=== PATIENT | male | born 1970 | race Caucasian/White ===

== ENCOUNTER → 2022-04-02 14:58 | Outpatient (BNVA) | payer OTHER, SELFPAY | PROVIDERS: PCP Internal Medicine; Visit Provider Internal Medicine Cardiovascular Disease | DX: I42.9 Cardiomyopathy, unspecified (principal); Z95.2 Presence of prosthetic heart valve | CPT/HCPCS: 93005 ==

== ENCOUNTER → 2022-05-08 14:50 | Outpatient (REF) | payer OTHER, SELFPAY ==
--- NOTE | 2022-05-08 14:52 | CA_ITS ---
Transthoracic Echocardiogram Patient (Last, First, Middle): ERNESTO NAVARRO, Gender: Male Date of : 1970 Age: 51 Procedure Date: 05/08/2022 Procedure Type: Transthoracic Echocardiogram Location: OP Height: 165.1 cm Weight: 77.11 kg BSA: 1.85 m2 Heart Rate: bpm BP: 130 / 75 mmHg Venue Manager: TO Referring MD: Diego Vargas MD Symptoms: Z95.2 - Presence of prosthetic heart valve Study Quality: Fair/Contrast Conclusions: - The left ventricular systolic function is mildly decreased. The calculated ejection fraction is 47% by biplane method. - There is mildly decreased right ventricular systolic function. - The left atrium is mildly dilated. - A mechanical prosthetic aortic valve is present. The prosthetic aortic valve appears to be functioning normally. Findings Procedure Information Contrast agent, definity, is being given per protocol without apparent complications. Left Ventricle Normal left ventricular cavity size. The left ventricular systolic function is mildly decreased. The calculated ejection fraction is 47% by biplane method. There is mild global hypokinesis. Diastolic function is normal for age. There is mild septal asymmetric hypertrophy. Right Ventricle Mildly increased right ventricular cavity size. There is mildly decreased right ventricular systolic function. Atria The left atrium is mildly dilated. The right atrium is normal in size. Aortic Valve A mechanical prosthetic aortic valve is present. The prosthetic aortic valve appears to be functioning normally. The mean gradient is 10 mmHg. There is no aortic valve regurgitation. Acceleration time 95ms. Mitral Valve The mitral valve appears normal. There is trace mitral valve regurgitation. There is no mitral valve stenosis. Pulmonic Valve The pulmonic valve is likely normal. There is trace pulmonic valve regurgitation. Tricuspid Valve Normal tricuspid valve structure. There is mild tricuspid valve regurgitation. There is no evidence of pulmonary hypertension. Great Vessels The asc aorta is normal in size. Venous The inferior vena cava is normal in size and collapses greater than 50% with inspiration. Pericardium/Pleural There is no evidence of pericardial effusion. Prior Study Comparison Changes noted compared to prior study dated: 09/04/2019. LVEF higher. Previously described wall motion abnormalities not clearly visualized. Measurements 2D Linear Measurements IVSd: 1.06 0.6-0.9/0.6-1.0 cm LVIDd: 5.92 3.9-5.3/4.2-5.9 cm LVIDd Index: 3.20 2.4-3.2/2.2-3.1 cm/m2 LVIDs: 4.33 2.0-3.6 cm LVPWd: 0.93 0.7-1.1 cm LA Diam: 3.70 2.7-3.8/3.0-4.0 cm LAIDs Index: 2.00 1.5-2.3 cm/m2 LV Mass: 299.13 67-162/88-224 g LV Mass Index: 161.69 43-95/49-115 g/m2 LVOT Diam: 2.10 3.0+(-)1.3 cm 2D Systolic Function EF 4C: 38.50 >55% EF 2C: 54.80 >55% EF BiP: 47.10 >55% Mitral Valve MV VTI: 0.40 MV Pk Yanick: 1.03 MV Mn Yanick: 0.71 MV Pk Grad: 4.00 MV Mn Grad: 2.00 MV Pk E: 1.04 MV PK A: 0.91 MV Decel Time: 304.00 E/A: 1.10 E'Lateral: 11.30 E'Medial: 5.55 E/E' Med: 18.70 E/E' Lat: 9.20 PHT: 89.00 MVA PHT: 2.47 MVA Continuity: 1.50 Decel [place]: 3.42 Aortic Valve AoV Pk Yanick: 2.13 AoV Mn Yanick: 1.47 AoV VTI: 0.48 AoV Pk Grad: 18.00 Aov Mn Grad: 10.00 SHARON Cont.VTI: 1.27 LVOT LVOT Pk Yanick: 0.70 LVOT Mn Yanick: 0.46 LVOT VTI: 0.18 LVOT Pk Grad: 2.00 LVOT Mn Grad: 1.00 LVOT Diam: 2.10 LVOT Area: 3.46 Diastolic Function MV Pk E: 1.04 MV Pk A: 0.91 E/A: 1.10 E'Medial: 5.55 E/E' Med: 18.70 E' Laterial: 11.30 E/E' Lat: 9.20 Right Ventricle TAPSE (mm): 16.10 TVS' Yanick: 8.92 Tricuspid Valve TR Pk Yanick: 2.59 TR Pk Grad: 27.00 RA Press: 3.00 RVSP: 30.00 Great Vessels Aorta Ao Asc: 2.90 2.1-3.4 cm Updated in Other Vendor System with Status of Final John Johns MD electronically signed on 05/08/2022 5:21:35 PM with status of Final
== END ==
LOC: HO.CARD 14:50
PROVIDERS: Visit Provider Internal Medicine Cardiovascular Disease
DX: I42.9 Cardiomyopathy, unspecified (principal); Z95.2 Presence of prosthetic heart valve
CPT/HCPCS: 93306; Q9957

== ENCOUNTER → 2022-05-21 15:01 | Outpatient (BNVA) | payer OTHER, SELFPAY | PROVIDERS: PCP Internal Medicine; Visit Provider Internal Medicine Cardiovascular Disease | DX: Z13.89 Encounter for screening for other disorder (principal) ==

== ENCOUNTER → 2023-05-16 13:43 | Outpatient (REF) | payer OTHER, SELFPAY ==
--- NOTE | 2023-05-16 13:47 | CA_ITS ---
Transthoracic Echocardiogram Patient (Last, First, Middle): ERNESTO NAVARRO, Gender: Male Date of : 1970 Age: 52 Procedure Date: 05/16/2023 Procedure Type: Transthoracic Echocardiogram Location: OP Height: 165.1 cm Weight: 79.38 kg BSA: 1.87 m2 Heart Rate: bpm BP: 118 / 70 mmHg Stars Specialist: TO Referring MD: Diego Vargas MD Manufacturing Planner: Diego Vargas MD Symptoms: I42.9 - Cardiomyopathy, unspecified Study Quality: Fair/Contrast ECG Rhythm: Sinus with extra systoles Conclusions: - 1. Low normal LV ejection fraction of 50-55% with impaired relaxation filling pattern 2. Mildly to moderately reduced RV systolic function 3. Normally functioning mechanical aortic prosthesis with mean gradient of 13 mmHg 4. Normal RV systolic pressure 5. No gross pericardial effusion Findings Procedure Information Contrast agent, definity, is being given per protocol without apparent complications. Left Ventricle Normal left ventricular cavity size. There is normal left ventricular wall thickness. The left ventricular systolic function is low normal. The visually estimated ejection fraction is between 50-55%. Spectral Doppler is indicative of an impaired relaxation filling pattern. E/E prime ratio is between 8 and 15 consistent with indeterminate filling pressures. There is mild septal asymmetric hypertrophy. Right Ventricle Normal right ventricular cavity size. There is mild to moderately decreased right ventricular systolic function. Atria The left atrium is likely dilated. There is no evidence of interatrial shunt. The right atrium is normal in size. Aortic Valve A mechanical prosthetic aortic valve is present. The prosthetic aortic valve appears to be functioning normally. The mean gradient is 13 mmHg. There is no aortic valve regurgitation. Mitral Valve There is mild anterior and posterior mitral leaflet thickening. There is mild mitral annular calcification. There is trace mitral valve regurgitation. There is no mitral valve stenosis. Pulmonic Valve The pulmonic valve was not well visualized. Tricuspid Valve Normal tricuspid valve structure. There is mild tricuspid valve regurgitation. The right ventricular systolic pressure is normal. The right ventricular systolic pressure is 29 mmHg. Normal right atrial pressure. There is no evidence of pulmonary hypertension. Great Vessels All visible segments of the aorta are normal in size. The pulmonary artery was not well visualized. Venous The inferior vena cava is normal in size and collapses greater than 50% with inspiration. Pericardium/Pleural There is no evidence of pericardial effusion. Prior Study Comparison Changes noted compared to prior study dated: 05/08/2022. LV systolic function has marginally improved Measurements 2D Linear Measurements IVSd: 1.51 0.6-0.9/0.6-1.0 cm LVIDd: 3.88 3.9-5.3/4.2-5.9 cm LVIDd Index: 2.07 2.4-3.2/2.2-3.1 cm/m2 LVIDs: 2.48 2.0-3.6 cm LVPWd: 1.07 0.7-1.1 cm LA Diam: 3.30 2.7-3.8/3.0-4.0 cm LAIDs Index: 1.76 1.5-2.3 cm/m2 LV Mass: 219.62 67-162/88-224 g LV Mass Index: 117.44 43-95/49-115 g/m2 LVOT Diam: 2.30 3.0+(-)1.3 cm 2D Systolic Function EF 4C: 55.50 >55% EF 2C: 51.30 >55% EF BiP: 52.70 >55% Mitral Valve MV VTI: 0.36 MV Pk Yanick: 1.08 MV Mn Yanick: 0.72 MV Pk Grad: 5.00 MV Mn Grad: 2.00 MV Pk E: 0.95 MV PK A: 1.02 MV Decel Time: 269.00 E/A: 0.90 E'Lateral: 10.70 E'Medial: 6.09 E/E' Med: 15.60 E/E' Lat: 8.90 PHT: 79.00 MVA PHT: 2.78 MVA Continuity: 2.41 Decel [place]: 3.52 Aortic Valve AoV Pk Yanick: 2.50 AoV Mn Yanick: 1.66 AoV VTI: 0.53 AoV Pk Grad: 25.00 Aov Mn Grad: 13.00 SHARON Cont.VTI: 1.64 LVOT LVOT Pk Yanick: 0.93 LVOT Mn Yanick: 0.61 LVOT VTI: 0.21 LVOT Pk Grad: 3.00 LVOT Mn Grad: 2.00 LVOT Diam: 2.30 LVOT Area: 4.15 Diastolic Function MV Pk E: 0.95 MV Pk A: 1.02 E/A: 0.90 E'Medial: 6.09 E/E' Med: 15.60 E' Laterial: 10.70 E/E' Lat: 8.90 Right Ventricle TAPSE (mm): 13.70 TVS' Yanick: 9.75 Tricuspid Valve TR Pk Yanick: 2.29 TR Pk Grad: 21.00 RA Press: 8.00 RVSP: 29.00 Great Vessels Aorta Sinus of Valsalva: 3.49 2.0-3.5 cm Ao Asc: 3.10 2.1-3.4 cm Updated in Other Vendor System with Status of Final Diego Vargas MD electronically signed on 05/17/2023 11:56:26 AM with status of Final
== END ==
LOC: HO.CARD 13:43
PROVIDERS: PCP Internal Medicine; Visit Provider Internal Medicine Cardiovascular Disease
DX: I42.9 Cardiomyopathy, unspecified (principal); Z95.2 Presence of prosthetic heart valve
CPT/HCPCS: 93306; Q9957

== ENCOUNTER → 2023-05-16 13:47 | Outpatient (BNV) | payer OTHER, SELFPAY | PROVIDERS: PCP Internal Medicine; Visit Provider Internal Medicine Cardiovascular Disease | DX: I34.81 Nonrheumatic mitral (valve) annulus calcification (principal); I36.1 Nonrheumatic tricuspid (valve) insufficiency; I42.9 Cardiomyopathy, unspecified | CPT/HCPCS: 93306 ==

== ENCOUNTER 2023-08-15 13:12 | Outpatient (AMB) | payer OTHER, SELFPAY ==
[2023-08-15 13:14] VITALS: BP 120/72; PULSE 73; BMI 29.4
--- NOTE | 2023-08-15 13:14 | A.OFFVIS_ITS ---
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 Today he reports he has been feeling very well with no concerning cardiac symptoms. His primary concern is of discomfort in his right knee. He tells me he has a torn meniscus and will need to have surgery. He denies chest discomfort at rest or with activity. No shortness of breath, palpitations, lightheadedness, presyncope, syncope, falls. He goes to the gym routinely and does the elliptical and lifts weights. Taking his Coumadin and [place] [facility] [place] He has had no bleeding issues. He tells me his levels have been stable. Takes antibiotics 1 hour prior to dental work. 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 [facility] Surgical History (Updated 08/15/23 @ 15:32 by Ruth Bains, MICA-C) Status post ascending aortic aneurysm repair S/P AVR (aortic valve replacement) and aortoplasty Family History Father No problems noted. Mother Cancer Social History Patient Tobacco Use Status: Former Tobacco user Review of Systems Const All systems reviewed & are unremarkable except as noted in HPI and below ENT Denies dizziness Card Denies chest pain, Denies chest pain at rest, Denies chest pain with activity, Denies rapid heart rate, Denies pedal edema, Denies edema, Denies leg edema, Denies lightheadedness, Denies palpitations, Denies dyspnea, Denies dyspnea on exertion and Denies orthopnea Resp Denies cough, Denies dyspnea and Denies dyspnea on exertion GI Denies hematochezia and Denies change in stool character Musc Denies abnormal gait, Denies limited range of motion, Denies muscle cramps, Denies muscle weakness, Denies numbness, Denies radiating pain into limb, Denies stiffness and Denies tingling Neuro Denies abnormal gait, Denies dizziness, Denies numbness and Denies tingling Endo Denies palpitations Physical Exam Vital Signs: Last Vital Signs Pulse 73 08/15/23 13:14 BP 120/72 08/15/23 13:14 BMI result Body Mass Index 29.4 Const General: cooperative, healthy appearing, comfortable and no acute distress Orientation/consciousness: patient oriented x3 Neck Neck: Yes normal visual inspection and Yes no JVD Resp Effort & Inspection: normal respiratory effort Auscultation: clear to auscultation bilaterally, no rales, no rhonchi and no wheezes Cardio Jugular venous distension: no JVD Rate: regular rate Rhythm: regular rhythm Heart sounds: S1 normal heart sound present, S2 normal heart sound present, Clicking heart sound present (crisp aortic valve click), no murmurs and no rubs Neuro General: patient oriented x3 Extrem General: Yes normal to inspection, No no pedal edema and No calf tenderness Psych Appearance: grossly normal Mental Status: mental status grossly normal Speech and movement: Normal speech and movement present Office Procedures EKG Details: Today, read by me, normal sinus rhythm, left axis deviation, rate 73, QTc 425ms [id number], Complete Assessment & Plan Assessment & Plan (1) H/O aortic valve replacement: Comment: 01/2024 Code(s): Z95.2 - Presence of prosthetic heart valve Category: Surgical Plan: History of severe aortic stenosis status post mechanical aortic valve, remotely. Patient states he was 34 at the time. He has been on Coumadin for anticoagulation. INR goal 2-3. He follows with [facility] antico[facility]. INRs have been stable according to him. No bleeding issues reported. No need for concomitant aspirin use. SBE prophylaxis per ACC/AHA guidelines. He tells me he does take his antibiotic 1 hour prior to dental work. Last echocardiogram done 05/16/2023 shows EF 50-55%, [id number] reduced RV systolic function, normally function mechanical prosthetic aortic valve with mean gradient 13 mmHg. Echocardiogram done 1 year ago showed EF 47% and mean gradient 10 mmHg. Granite valve click noted on examination. Continue Coumadin. Will plan for repeat echo in 1 year. Cardiology follow-up 1 year, sooner if needed. (2) Anticoagulated: Code(s): Z79.01 - custodial (current) use of anticoagulants Category: Medical Plan: As above (3) Status post ascending aortic aneurysm repair: Comment: Development of thoracic aortic aneurysm suspected to be secondary to bicuspid aortic valve status post repair September 2014 with the a number 28 Hemashield graft Code(s): Z98.890 - Other specified postprocedural states; Z86.79 - Personal history of other diseases of the circulatory system Category: Surgical Plan: 09/2014. Recent echo showing ascending aorta 2.9 cm (4) Cardiomyopathy: Code(s): I42.9 - Cardiomyopathy, unspecified Category: Medical Plan: History of cardiomyopathy, improved to low normal. Recent EF 50-55%. No heart failure on examination. He does not require diuretic therapy. Continue low- dose metoprolol. (5) Preop cardiovascular exam: Code(s): Z01.810 - Encounter for preprocedural cardiovascular examination Category: Medical Plan: Preop for orthopedic surgery, right knee arthroscopic, partial medial meniscectomy. Recent echo shows normal EF. He has a known mechanical aortic v alve. He has no known history of CAD. His activity tolerance is greater than 4 Mets. He can proceed with surgery with low to intermediate cardiac risk. He is on Coumadin for anticoagulation. Coumadin can be held 5 days prior to surgery. He needs a Lovenox bridge. This was ordered for him and full instructions given. Following surgery he is to resume Lovenox and Coumadin. Continue Lovenox until INR reaches 2. He will contact the Coumadin Clinic and arrange for his INR checks. Continue low-dose metoprolol. Call/consult Cardiology if needed. Plan Time spent on chart review, documentation, interview and assessment Medications: New enoxaparin (Lovenox) (0.8 mL) 80 mg subcutaneously q 12 hours as directed before and after surgery; Lovenox bridge for coumadin hold - written instructions given to patient 14 ea 1RF Coding Level of Care Code Est Pt Level 4 (95883) Diagnoses H/O aortic valve replacement Z95.2 Anticoagulated Z79.01 Status post ascending aortic aneurysm repair Z98.890; Z86.79 Cardiomyopathy I42.9 Preop cardiovascular exam Z01.810 CPT Codes EKG - CPT: 16094-[id number], Complete ([id number]) Time Spent (min) 30
== END 2023-08-15 13:43 | disposition home or self-care (01) ==
PROVIDERS: PCP Internal Medicine; Visit Provider Nurse Practitioner Family
DX: Z95.2 Presence of prosthetic heart valve (principal); Z79.01 Long term (current) use of anticoagulants; Z98.890 Other specified postprocedural states; Z86.79 Personal history of other diseases of the circulatory system; I42.9 Cardiomyopathy, unspecified; Z01.810 Encounter for preprocedural cardiovascular examination
CPT/HCPCS: 93010; 99214

== ENCOUNTER → 2023-08-15 13:12 | Outpatient (BNVA) | payer OTHER, SELFPAY | PROVIDERS: PCP Internal Medicine; Visit Provider Nurse Practitioner Family | DX: Z01.810 Encounter for preprocedural cardiovascular examination (principal); I42.9 Cardiomyopathy, unspecified; Z95.2 Presence of prosthetic heart valve; Z86.79 Personal history of other diseases of the circulatory system; Z79.01 Long term (current) use of anticoagulants | CPT/HCPCS: 93005 ==

== ENCOUNTER 2024-09-01 13:36 | Outpatient (AMB) | payer OTHER, SELFPAY ==
[2024-09-01 13:37] VITALS: BP 110/70; PULSE 70; BMI 31.5
--- NOTE | 2024-09-01 13:37 | A.OFFVIS_ITS ---
Vital Signs 09/01/24 13:37 Height 5 ft 5 in Weight 189 lb 9.561 oz BMI 31.5 BP 110/70 Blood Pressure Location Lt brachial Position Sitting Pulse 70 Intake Visit Reasons: 1 yr follow up Intake Note: 1 year follow-up with ekg c/o fatigue Pharmaceutical Process Engineer Required: No Allergies No Known Allergies Allergy (Verified 08/15/23 13:16) Medication List - Last Reconciled 09/01/24 by Diego Vargas MD metoprolol succinate ER (Toprol XL) 25 mg PO DAILY 90 days simvastatin 20 mg PO BEDTIME warfarin 10 - 15 mg PO DAILY HPI Comments Details: Manfred comes for follow-up. He has not been exercising much due to right knee issues. Has gained some weight. However with his usual activity denies any exertional chest pain or shortness of breath. Denies any prolonged palpitation irregular heartbeat. No orthopnea, PND, leg edema. No neurologic events or bleeding issues. INRs has been running a little low, he sometimes forgets to take warfarin. Takes his antibiotics regularly. [facility] Surgical History Status post ascending aortic aneurysm repair S/P AVR (aortic valve replacement) and aortoplasty Family History Father No problems noted. Mother Cancer Social History Patient Tobacco Use Status: Former Tobacco user Review of Systems Const Denies chills, Denies fatigue, Denies fever(s), Denies frequent falls, Denies weakness, Denies weight gain and Denies weight loss ENT Denies dizziness Card Denies chest pain, Denies leg edema, Denies lightheadedness, Denies palpitations, Denies dyspnea, Denies dyspnea on exertion, Denies orthopnea and Denies other (loss of consciousness) Resp Denies cough, Denies dyspnea and Denies dyspnea on exertion GI Denies hematochezia and Denies change in stool character Musc Denies abnormal gait, Denies muscle weakness, Denies numbness, Denies radiating pain into limb and Denies tingling Neuro Denies abnormal gait, Denies dizziness, Denies frequent falls, Denies numbness, Denies tingling and Denies weakness Endo Denies fatigue and Denies palpitations Physical Exam Vital Signs: Last Vital Signs Pulse 70 09/01/24 13:37 BP 110/70 09/01/24 13:37 BMI result Body Mass Index 31.5 Const General: cooperative, comfortable, no acute distress, well developed, alert and awake Nutritional Appearance: well nourished and overweight Orientation/consciousness: patient oriented x3 Limitations: no limitations Neck Neck: Yes trachea midline, Yes supple and Yes no JVD Resp Effort & Inspection: normal respiratory effort Auscultation: clear to auscultation bilaterally Cardio Jugular venous distension: no JVD Palpation: normal PMI Rate: regular rate Rhythm: regular rhythm Heart sounds: S1 normal heart sound present, Clicking heart sound present (Wilkinson closing click of [place] Roberto aortic valve), no gallops, no murmurs and no rubs GI Auscultation: normal bowel sounds Skin General skin exam: no rashes or lesions noted Neuro General: patient oriented x3 and no focal motor deficits Extrem General: Yes no clubbing, cyanosis or edema Psych Appearance: grossly normal Office Procedures EKG Details: EKG shows normal sinus rhythm with normal EKG [id number], Complete Assessment & Plan Assessment & Plan (1) Status post ascending aortic aneurysm repair: Comment: Development of thoracic aortic aneurysm suspected to be secondary to bicuspid aortic valve status post repair September 2014 with the a number 28 Hemashield graft Code(s): Z98.890 - Other specified postprocedural states; Z86.79 - Personal history of other diseases of the circulatory system Category: Surgical Plan: Status post mechanical aortic valve replacement with 27 mm valve Saint Roberto, clinically working well. At the same time he also had repair of his ascending aorta. Clinically both seem to be doing well by last echocardiogram. Repeat echocardiogram near future. Continue aggressive blood pressure control. Continue warfarin therapy being followed by Coumadin Clinic. Maintain target INR between 2 and 3. SBE prophylaxis as per ACC/aha guidelines. (2) Cardiomyopathy: Code(s): I42.9 - Cardiomyopathy, unspecified Category: Medical Plan: Prior history of cardiomyopathy which has normalized. Continue metoprolol therapy for neurohormonal modulation. Avoidance of cardiotoxic agent was discussed. Continue to follow up with echocardiogram. Encouraged to maintain activity level as tolerated. Signs and symptoms of heart failure were discussed. Will follow up in the clinic in 1 year's time, sooner p.r.n.. Thank you for allowing me to partake in his care Orders: Orders CA echo transthoracic complete Today Z95.2 - Presence of prosthetic heart valve Coding Level of Care Code Est Pt Level 4 (69678) Complex EM visit Add On G2211 Diagnoses Status post ascending aortic aneurysm repair Z98.890; Z86.79 Cardiomyopathy I42.9 CPT Codes EKG - CPT: 38414-[id number], Complete ([id number])
== END 2024-09-01 13:59 | disposition home or self-care (01) ==
LOC: HO.HCS 13:36
PROVIDERS: PCP Internal Medicine; Visit Provider Internal Medicine Cardiovascular Disease
DX: Z98.890 Other specified postprocedural states (principal); Z86.79 Personal history of other diseases of the circulatory system; I42.9 Cardiomyopathy, unspecified
CPT/HCPCS: 93010; 99214

== ENCOUNTER → 2024-09-01 13:36 | Outpatient (BNVA) | payer OTHER, SELFPAY | PROVIDERS: PCP Internal Medicine; Visit Provider Internal Medicine Cardiovascular Disease | DX: I42.9 Cardiomyopathy, unspecified (principal); Z95.2 Presence of prosthetic heart valve; Z98.890 Other specified postprocedural states; Z86.79 Personal history of other diseases of the circulatory system | CPT/HCPCS: 93005 ==

== ENCOUNTER → 2024-10-09 07:42 | Outpatient (REF) | payer OTHER, SELFPAY ==
--- NOTE | 2024-10-09 07:49 | CA_ITS ---
Transthoracic Echocardiogram Patient (Last, First, Middle): Manfred Scott, Gender: Male Date of : 1970 Age: 54 Procedure Date: 10/09/2024 Procedure Type: Transthoracic Echocardiogram Location: OP Height: 165. cm Weight: 81.65 kg BSA: 1.89 m2 Heart Rate: 78 bpm BP: 162 / 90 mmHg Cotton Weigher Operator: JOANA Referring MD: Diego Vargas MD Symptoms: Z95.2 - Presence of prosthetic heart valve Study Quality: Fair ECG Rhythm: Sinus Conclusions: - The left ventricular systolic function is low normal. The calculated ejection fraction is 53% by biplane method. - A mechanical prosthetic aortic valve is present. The prosthetic aortic valve appears to be functioning normally. Findings Left Ventricle Normal left ventricular cavity size. There is normal left ventricular wall thickness. The left ventricular systolic function is low normal. The calculated ejection fraction is 53% by biplane method. Diastolic function is normal for age. Right Ventricle Mildly increased right ventricular cavity size. There is normal right ventricular systolic function. Atria Both atria are normal in size. Aortic Valve A mechanical prosthetic aortic valve is present. The prosthetic aortic valve appears to be functioning normally. The mean gradient is 12 mmHg. There is no aortic valve regurgitation. Mitral Valve The mitral valve appears normal. There is mild mitral annular calcification. There is trace mitral valve regurgitation. There is no mitral valve stenosis. Pulmonic Valve The pulmonic valve is likely normal. Tricuspid Valve There is trace tricuspid valve regurgitation. There is no evidence of pulmonary hypertension. Great Vessels The asc aorta and aortic arch are normal in size. Venous The inferior vena cava is normal in size and collapses greater than 50% with inspiration. Pericardium/Pleural There is no evidence of pericardial effusion. Prior Study Comparison No significant change compared to prior study dated: 05/16/2023. Measurements 2D Linear Measurements IVSd: 0.99 0.6-0.9/0.6-1.0 cm LVIDd: 4.68 3.9-5.3/4.2-5.9 cm LVIDd Index: 2.48 2.4-3.2/2.2-3.1 cm/m2 LVIDs: 3.38 2.0-3.6 cm LVPWd: 1.09 0.7-1.1 cm LA Diam: 4.30 2.7-3.8/3.0-4.0 cm LAIDs Index: 2.28 1.5-2.3 cm/m2 LV Mass: 214.53 67-162/88-224 g LV Mass Index: 113.51 43-95/49-115 g/m2 LVOT Diam: 2.20 3.0+(-)1.3 cm 2D Systolic Function EF 4C: 53.00 >55% EF 2C: 53.20 >55% EF BiP: 53.10 >55% Mitral Valve MV VTI: 0.27 MV Pk Yanick: 1.27 MV Mn Yanick: 0.75 MV Pk Grad: 6.00 MV Mn Grad: 3.00 MV Pk E: 0.89 MV PK A: 1.18 MV Decel Time: 178.00 E/A: 0.80 E'Lateral: 8.81 E'Medial: 6.96 E/E' Med: 12.80 E/E' Lat: 10.10 PHT: 52.00 MVA PHT: 4.23 MVA Continuity: 2.57 Decel [place]: 5.01 Aortic Valve AoV Pk Yanick: 2.14 AoV Mn Yanick: 1.63 AoV VTI: 0.40 AoV Pk Grad: 18.00 Aov Mn Grad: 12.00 SHARON Cont.VTI: 1.73 LVOT LVOT Pk [place]ick: 0.91 LVOT Mn Yanick: 0.68 LVOT VTI: 0.18 LVOT Pk Grad: 3.00 LVOT Mn Grad: 2.00 LVOT Diam: 2.20 LVOT Area: 3.80 Diastolic Function MV Pk E: 0.89 MV Pk A: 1.18 E/A: 0.80 E'Medial: 6.96 E/E' Med: 12.80 E' Laterial: 8.81 E/E' Lat: 10.10 Right Ventricle TAPSE (mm): 19.30 TVS' [place]: 10.00 Tricuspid Valve TR Pk Yanick: 2.17 TR Pk Grad: 19.00 RA Press: 3.00 RVSP: 22.00 Great Vessels Aorta Sinus of Valsalva: 3.80 2.0-3.5 cm Ao Asc: 3.40 2.1-3.4 cm Ao Arch: 3.70 Pulmonary Valve PV Pk Yanick: 1.07 Peak PV Grad: 5.00 Updated in Other Vendor System with Status of Final John Johns MD electronically signed on 10/10/2024 12:40:21 PM with status of Final
== END ==
LOC: HO.CARD 07:42
PROVIDERS: PCP Internal Medicine; Visit Provider Internal Medicine Cardiovascular Disease
DX: Z95.2 Presence of prosthetic heart valve (principal)
CPT/HCPCS: 93306

== ENCOUNTER → 2024-10-09 07:49 | Outpatient (BNV) | payer OTHER, SELFPAY | PROVIDERS: PCP Internal Medicine; Visit Provider Internal Medicine | DX: I34.81 Nonrheumatic mitral (valve) annulus calcification (principal); Z95.2 Presence of prosthetic heart valve | CPT/HCPCS: 93306 ==